=== PATIENT | female | born 1980 | race Caucasian/White ===

== ENCOUNTER → 2017-10-27 | Outpatient (CLI) | payer OTHER ==
[~2017-10-27] MED LIST: FERR1TAB23; NPR250 PO; PRENTAB26 PO
[2017-10-27 16:40] LABS: BASO % 0.3 %; BASO ABS # 0.02 K/uL (0-0.2); COMPLETE YES; EOS % 1.9 %; HEMATOCRIT 38.8 % (37-47); IG% 0.2 %; LYMPH % 37.8 %; MEAN CELL VOLUME 95.1 fL (80-100); MEAN CORPUSCULAR HEMOGLOBIN 32.4 pg (25-34); MEAN PLATELET VOLUME 9.8 fL (7.4-10.4); MONO % 7.6 %; NEUT % 52.2 %; PLATELET COUNT 276 K/uL (130-400); RED BLOOD COUNT 4.08 M/uL (4.2-5.4); WHITE BLOOD COUNT 5.82 K/uL (4.8-10.8)
[2017-10-27 17:03] LABS: ALT/SGPT 29 U/L (12-78); AST/SGOT 17 U/L (15-37); C-REACTIVE PROTEIN < 0.29 mg/dl (0-0.29); CREATININE 0.61 mg/dl (0.60-1.20)
== END | disposition home or self-care (01) ==
LOC: C.LAB 13:18
PROVIDERS: ATTEND Internal Medicine Rheumatology
DX: I73.00 Raynaud's syndrome without gangrene (principal); M19.90 Unspecified osteoarthritis, unspecified site

== ENCOUNTER → 2018-06-29 | Outpatient (CLI) | payer OTHER ==
[2018-06-29 09:55] LABS: CHOLESTEROL 160 mg/dl (0-200); GLUCOSE,FASTING 87 mg/dl (70-99); LDL CHOLESTEROL (DIRECT) 112 mg/dl
== END | disposition home or self-care (01) ==
LOC: C.LAB 07:43
PROVIDERS: ATTEND Internal Medicine
DX: Z00.00 Encounter for general adult medical examination without abnormal findings (principal)